=== PATIENT | female | born 1955 ===

== ENCOUNTER 2021-07-04 17:49 | Inpatient (IN) ==
[2021-07-04] MEDS ORDERED: Lactated Ringers 1000 ml BAG 1,000 ML IV ONE (20:27)
[2021-07-04 21:39] LABS: ABS Eosinophils 0.1 10^3/ul (0-0.6); ABS Monocytes 0.7 10^3/ul (0-0.8); ABS Neutrophils 4.3 10^3/ul (1.5-7.7); Eosinophil % 2.3 %; Hematocrit 38 % (35-47); Hemoglobin 12.6 g/dL (12.0-16.0); Lymphocyte % 16.7 %; Mean Corpuscular HGB Conc 33 g/dL (31-36); Mean Corpuscular Hemoglobin 30 pg (27-31); Mean Corpuscular Volume 91 fL (80-97); Mean Platelet Volume 8.5 fL (7.4-10.4); Nucleated Red Blood Cells % 0.1; Platelet Count 300 10^3/uL (150-450); Red Blood Count 4.18 10^6 /uL (3.70-4.87); Red Cell Distribution Width 13 % (10-15); White Blood Count 6.2 10^3/uL (3.5-10.8)
[2021-07-04 21:52] LABS: ALT 18 U/L (7-52); AST 19 U/L (13-39); Albumin 3.3 g/dL (3.2-5.2); Albumin/Globulin Ratio 0.8 (1-3); Alkaline Phosphatase 68 U/L (35-149); Anion Gap 9 mmol/L (2-11); Blood Urea Nitrogen 17 mg/dL (6-24); CO2 Carbon Dioxide 28 mmol/L (22-32); Chloride 104 mmol/L (101-111); EGFR African American 86.4 (>60); EGFR Non-African American 71.4 (>60); Globulin 3.9 g/dL (2-4); Glucose 107 mg/dL (70-100); Indirect Bilirubin 0.4 mg/dL (0.3-1.0); Lipase 16 U/L (11.0-82.0); Magnesium 1.9 mg/dL (1.9-2.7); Potassium 3.1 mmol/L (3.5-5.0); Sodium 141 mmol/L (135-145); Total Protein 7.2 g/dL (6.4-8.9)
[2021-07-04] MEDS ORDERED: Iohexol 350 (CONTRAST) 500 ML MDV IV ONE (21:57)
[2021-07-04 22:11] LABS: Troponin I 0.15 ng/mL (<0.03)
[2021-07-05] MEDS ORDERED: Remdesivir 100 mg Vial 200 MG in NS 0.9% 250 ml 210 ML IV ONE (02:03)
[2021-07-05] MEDS: Enoxaparin 80 MG/0.8 ML SYR SUBCUT SCH ×2 (03:58→15:49)
[2021-07-05 04:59] LABS: Urine Appearance Clear; Urine Bilirubin Negative (Negative); Urine Blood 1+ (Negative); Urine Color Yellow; Urine Glucose Negative (Negative); Urine Ketones Negative (Negative); Urine Nitrite Negative (Negative); Urine Protein 1+(30 mg/dL) (Negative); Urine Specific Gravity 1.058 (1.002-1.030); Urine Urobilinogen Negative (Negative)
[2021-07-05] MEDS ORDERED: Azithromycin 500 mg/250 mL NS IVPB ONE (05:00)
[2021-07-05 05:03] LABS: Urine Bacteria Absent (Absent); Urine Red Blood Cell 2+(6-10/hpf) (Absent); Urine Squamous Epithelial Cell Present (Absent); Urine White Blood Cell Trace(0-5/hpf) (Absent)
[2021-07-05 05:19] LABS: Troponin I 0.15 ng/mL (<0.03)
[2021-07-05] MEDS ORDERED: Senna TAB 8.6 mg TAB PO PRN (05:25)
[2021-07-05] MEDS ORDERED: Polyethylene Glycol 3350 17 GM PACKET PO PRN (05:25)
[2021-07-05 06:28] LABS: ABS Eosinophils 0.1 10^3/ul (0-0.6); ABS Lymphocytes 0.6 10^3/ul (1.0-4.8); ABS Monocytes 0.4 10^3/ul (0-0.8); ABS Neutrophils 4.3 10^3/ul (1.5-7.7); Eosinophil % 2.2 %; Hematocrit 33 % (35-47); Hemoglobin 11.1 g/dL (12.0-16.0); Lymphocyte % 11.7 %; Mean Corpuscular HGB Conc 34 g/dL (31-36); Mean Corpuscular Hemoglobin 30 pg (27-31); Mean Corpuscular Volume 89 fL (80-97); Mean Platelet Volume 8.6 fL (7.4-10.4); Nucleated Red Blood Cells % 0.1; Platelet Count 271 10^3/uL (150-450); Red Blood Count 3.66 10^6 /uL (3.70-4.87); Red Cell Distribution Width 13 % (10-15); White Blood Count 5.4 10^3/uL (3.5-10.8)
[2021-07-05 06:38] LABS: INR 1.28 (0.86-1.15)
[2021-07-05 06:50] LABS: ALT 15 U/L (7-52); AST 16 U/L (13-39); Albumin 2.8 g/dL (3.2-5.2); Albumin/Globulin Ratio 0.8 (1-3); Alkaline Phosphatase 57 U/L (35-149); Anion Gap 7 mmol/L (2-11); Blood Urea Nitrogen 17 mg/dL (6-24); CO2 Carbon Dioxide 28 mmol/L (22-32); Calcium 8.1 mg/dL (8.6-10.3); Chloride 107 mmol/L (101-111); EGFR African American 91.6 (>60); EGFR Non-African American 75.7 (>60); Globulin 3.4 g/dL (2-4); Glucose 120 mg/dL (70-100); Indirect Bilirubin 0.2 mg/dL (0.3-1.0); Magnesium 1.8 mg/dL (1.9-2.7); Potassium 3.4 mmol/L (3.5-5.0); Sodium 142 mmol/L (135-145); Total Protein 6.2 g/dL (6.4-8.9)
[2021-07-05] MEDS ORDERED: Magnesium Sulfate IV 3 GM in NS 0.9% 100 ml BAG 100 ML IVPB ONE (08:05)
[2021-07-05] MEDS ORDERED: Potassium Chlor 20 meq TAB.ER PO ONE (08:05)
[2021-07-05 09:42] LABS: Troponin I 0.13 ng/mL (<0.03)
[2021-07-06] MEDS: Enoxaparin 80 MG/0.8 ML SYR SUBCUT SCH ×2 (04:29→14:40)
[2021-07-06] MEDS: Azithromycin 500 mg/250 ml NS 500 MG/250 ML BAG IVPB SCH (04:29)
[2021-07-06 09:57] LABS: Hematocrit 36 % (35-47); Hemoglobin 12.3 g/dL (12.0-16.0); Mean Corpuscular HGB Conc 34 g/dL (31-36); Mean Corpuscular Hemoglobin 31 pg (27-31); Mean Corpuscular Volume 90 fL (80-97); Mean Platelet Volume 8.6 fL (7.4-10.4); Platelet Count 353 10^3/uL (150-450); Red Blood Count 4.03 10^6 /uL (3.70-4.87); Red Cell Distribution Width 13 % (10-15)
[2021-07-06 10:12] LABS: Calcium 9.1 mg/dL (8.6-10.3); EGFR Non-African American 76.9 (>60); Potassium 3.5 mmol/L (3.5-5.0)
[2021-07-06] MEDS: Remdesivir 100 mg Vial 100 MG in NS 0.9% 250 ml 230 ML IV SCH (11:27)
[2021-07-07] MEDS: Azithromycin 500 mg/250 ml NS 500 MG/250 ML BAG IVPB SCH (04:00)
[2021-07-07] MEDS: Enoxaparin 80 MG/0.8 ML SYR SUBCUT SCH (04:00)
[2021-07-07 06:59] LABS: Hematocrit 32 % (35-47); Hemoglobin 10.9 g/dL (12.0-16.0); Mean Corpuscular HGB Conc 34 g/dL (31-36); Mean Corpuscular Hemoglobin 31 pg (27-31); Mean Corpuscular Volume 90 fL (80-97); Platelet Count 293 10^3/uL (150-450); Red Blood Count 3.56 10^6 /uL (3.70-4.87); Red Cell Distribution Width 13 % (10-15); White Blood Count 7.7 10^3/uL (3.5-10.8)
[2021-07-07 07:08] LABS: Calcium 8.5 mg/dL (8.6-10.3); EGFR African American 117.6 (>60); EGFR Non-African American 97.2 (>60); Magnesium 1.8 mg/dL (1.9-2.7); Potassium 3.9 mmol/L (3.5-5.0)
[2021-07-07] MEDS: Remdesivir 100 mg Vial 100 MG in NS 0.9% 250 ml 230 ML IV SCH (08:36)
[2021-07-07 12:33] VITALS: BP 128/63
== END 2021-07-07 16:20 | disposition home or self-care (01) | DRG 137 ==
LOC: ED 17:49 → EDHOLD 07-05 01:52 → SUATTDRO 07-05 01:52 → MED 07-05 12:03
PROVIDERS: ADMIT Internal Medicine; ATTEND Internal Medicine